=== PATIENT | female | born 1980 | race Caucasian/White ===

== ENCOUNTER 2021-06-26 11:57 | Emergency (ER) | payer OTHER ==
[~2021-06-26] VITALS: Ht 167.6 cm; Wt 74.4 kg
[2021-06-26] MEDS ORDERED: COZAAR50 MG PO (12:11)
== END 2021-06-26 14:18 | disposition home or self-care (01) ==
LOC: ER 11:57
DX: S01.521A Laceration with foreign body of lip, initial encounter (principal); W22.8XXA Striking against or struck by other objects, initial encounter; Y93.9 Activity, unspecified; Y92.59 Other trade areas as the place of occurrence of the external cause

== ENCOUNTER 2022-07-26 07:43 | Emergency (ER) | payer OTHER ==
[~2022-07-26] VITALS: Ht 162.6 cm; Wt 68.0 kg
[~2022-07-26 07:43] MED LIST: COZAAR50 MG PO
== END 2022-07-26 15:18 | disposition home or self-care (01) ==
LOC: ER 07:43
DX: S52.125A Nondisplaced fracture of head of left radius, initial encounter for closed fracture (principal); W10.8XXA Fall (on) (from) other stairs and steps, initial encounter; Y93.89 Activity, other specified; Y92.89 Other specified places as the place of occurrence of the external cause; S60.212A Contusion of left wrist, initial encounter; J45.909 Unspecified asthma, uncomplicated; I10 Essential (primary) hypertension